=== PATIENT | female | born 1985 | race Caucasian/White ===

== ENCOUNTER 2016-10-11 11:02 | Emergency (ER) | payer OTHER ==
[2016-10-11 13:59] LABS: HEMOGLOBIN 14.9 gm/dl (12.3-15.3); RED BLOOD COUNT 4.83 M/UL (4.00-5.10); WHITE BLOOD COUNT 12.6 K/UL (4.5-11.0)
[2016-10-11 14:15] LABS: BUN/CREATININE RATIO 6 (0-10)
== END 2016-10-11 15:10 | disposition home or self-care (01) ==
LOC: ER1 11:02
PROVIDERS: Physician Assistant Medical
DX: J20.9 Acute bronchitis, unspecified (principal); J45.909 Unspecified asthma, uncomplicated; Z76.0 Encounter for issue of repeat prescription; Z88.0 Allergy status to penicillin; F17.210 Nicotine dependence, cigarettes, uncomplicated; F41.9 Anxiety disorder, unspecified; Z79.899 Other long term (current) drug therapy
CPT/HCPCS: 36415; 71020; 80053; 85025; 85379; 94640; 94664; 96372; 99284; J1100

== ENCOUNTER → 2020-10-21 | Outpatient (CLI) | payer OTHER ==
[~2020-10-21] MED LIST: ALBUTEROL1.25 MG/3 INH; K-DUR TAB 20 M20 MEQ PO; LEVAQUIN750 MG PO; LOPRESSOR 25 MG25 MG PO; METOPROLOL TART25 MG PO; METOPROLOL TART50 MG PO; VENTOLIN HFA 66.7 GM INH; VIBRAMYCIN 100100 MG GT
[2020-10-21 18:08] LABS: RED BLOOD COUNT 4.39 M/UL (4.00-5.10); WHITE BLOOD COUNT 7.1 K/UL (4.5-11.0)
[2020-10-21 18:47] LABS: BUN/CREATININE RATIO 9 (0-10)
== END ==
LOC: LAB 17:06
PROVIDERS: Nurse Practitioner Family
DX: R00.2 Palpitations (principal)
CPT/HCPCS: 36415; 80053; 83735; 84443; 85025; 93005

== ENCOUNTER → 2020-11-16 | Outpatient (CLI) | payer OTHER | LOC: RAD 13:30 | DX: M54.5 Low back pain (principal); G89.29 Other chronic pain; M51.34 Other intervertebral disc degeneration, thoracic region; M51.36 Other intervertebral disc degeneration, lumbar region | CPT/HCPCS: 72070; 72100 ==

== ENCOUNTER → 2020-11-19 | Outpatient (CLI) | payer OTHER | LOC: US 07:54 | DX: R94.5 Abnormal results of liver function studies (principal); Z90.49 Acquired absence of other specified parts of digestive tract | CPT/HCPCS: 76705 ==